=== PATIENT | male | born 1940 | race Caucasian/White ===

== ENCOUNTER → 2016-11-22 | Outpatient (CLI) | payer OTHER ==
[~2016-11-22] MED LIST: ADVAIR 250/501 DISK IH; AMLODIPINE BESY10 MG PO; ASPIR 8181 M1 PO; ASPIR-LOW81 MG PO; CYANOCOBALAM1000 MCG PO; DAILY VALUE1 EACH PO; HYZAAR 50-121 TABLET PO; Hyzaar 50-12.5 PO; LASIX40 MG PO; LEVOFLOXACIN750 MG PO; LIPITOR10 MG PO; LOSARTAN POTASS25 MG PO; LOSARTAN-HCTZ1 EACH PO; MULTIVITAMIN1 EAC2 PO; Norvasc PO; PROAIR HFA8.5 GM IH; PROVENTIL,2.5 MG/0.5 IH; PROVENTIL,2.5 MG/3 M IH; SPIRIVA1 INHALATI IH; SYMBICORT60 INHALAT IH; Theragran PO; VENTOLIN HFA18 GM IH; VITAMIN D2000 UNIT PO
[2016-11-22 09:52] LABS: HEMATOCRIT 35.2 % (38.0-50.0); MCH 28.4 PG (29.0-34.0); MCHC 32.4 G/DL (30.0-36.0); MCV 87.8 FL (86-99); MEAN PLAT.VOLUME 9.1 uM^3 (9.0-12.4); PLATELET COUNT 308 K/uL (156-360); RBC DIS.WIDTH-CV 12.5 % (11.8-14.6); RBC DIS.WIDTH-SD 40.3 % (39-53); RED BLOOD COUNT 4.01 M/uL (4.00-5.50); WHITE BLOOD COUNT 8.3 K/uL (4.1-10.2)
== END | disposition home or self-care (01) ==
LOC: OPR 08:41 → EDSTATUS 09:00 → OPR 09:00
PROVIDERS: Internal Medicine
DX: R80.9 Proteinuria, unspecified (principal); I12.9 Hypertensive chronic kidney disease with stage 1 through stage 4 chronic kidney disease, or unspecified chronic kidney disease; N18.3 Chronic kidney disease, stage 3 (moderate); I73.9 Peripheral vascular disease, unspecified; J44.9 Chronic obstructive pulmonary disease, unspecified; Z86.711 Personal history of pulmonary embolism; Z86.718 Personal history of other venous thrombosis and embolism; K21.9 Gastro-esophageal reflux disease without esophagitis; E78.5 Hyperlipidemia, unspecified; Z87.891 Personal history of nicotine dependence; Z80.8 Family history of malignant neoplasm of other organs or systems; Z82.5 Family history of asthma and other chronic lower respiratory diseases; Z79.82 Long term (current) use of aspirin; Z79.899 Other long term (current) drug therapy
CPT/HCPCS: 77012; 85027; 88305; 88313 90; 88346 90; 88348 90; J3010

== ENCOUNTER → 2017-07-25 | Outpatient (CLI) | payer OTHER ==
[~2017-07-25] VITALS: Ht 172.7 cm; Wt 58.5 kg
[~2017-07-25] MED LIST changes: +ACID REDUCER C1 EACH PO; +INCRUSE ELLI62.5 MCG IH; +TEKTURNA150 MG PO; +VALSARTAN80 MG PO
== END | disposition home or self-care (01) ==
LOC: AMB 06:32
DX: D64.9 Anemia, unspecified (principal); I48.91 Unspecified atrial fibrillation; Z53.09 Procedure and treatment not carried out because of other contraindication
CPT/HCPCS: 93005

== ENCOUNTER → 2017-10-15 | Outpatient (CLI) | payer OTHER ==
[~2017-10-15] VITALS: Ht 180.3 cm; Wt 60.5 kg
[~2017-10-15] MED LIST changes: +COREG3.125 M1 PO; -VITAMIN D2000 UNIT PO; +VITAMIN D31000 UNI2 PO
[2017-10-15 14:25] LABS: CHLORIDE 102 MEQ/L (99-109); POTASSIUM 4.6 MEQ/L (3.7-5.4); SODIUM 142 MEQ/L (136-147)
[2017-10-15 14:31] LABS: GFR ESTIMATE (CALCULATED) 22 mL/min/ (58.99-99999); GLUCOSE 82 mg/dL (70-99); UREA NITROGEN (BUN) 48 mg/dL (9-23)
== END | disposition home or self-care (01) ==
LOC: AMB 13:29
PROVIDERS: Anesthesiology
DX: D64.9 Anemia, unspecified (principal); K63.5 Polyp of colon; K57.30 Diverticulosis of large intestine without perforation or abscess without bleeding; K64.8 Other hemorrhoids; K29.60 Other gastritis without bleeding; K25.9 Gastric ulcer, unspecified as acute or chronic, without hemorrhage or perforation; Q27.33 Arteriovenous malformation of digestive system vessel; J44.9 Chronic obstructive pulmonary disease, unspecified; Z99.81 Dependence on supplemental oxygen; I12.9 Hypertensive chronic kidney disease with stage 1 through stage 4 chronic kidney disease, or unspecified chronic kidney disease; N18.9 Chronic kidney disease, unspecified; E78.5 Hyperlipidemia, unspecified; Z86.718 Personal history of other venous thrombosis and embolism; Z86.711 Personal history of pulmonary embolism; Z79.82 Long term (current) use of aspirin; Z87.891 Personal history of nicotine dependence; Z88.0 Allergy status to penicillin; Z88.1 Allergy status to other antibiotic agents; Z88.8 Allergy status to other drugs, medicaments and biological substances
CPT/HCPCS: 80048; 88305; 88342 TC; J7643